=== PATIENT | female | born 1970 | race Caucasian/White ===

== ENCOUNTER 2021-01-08 09:41 | Day surgery (SDC) | payer OTHER ==
[~2021-01-08] VITALS: Ht 160 cm; Wt 68.0 kg
[~2021-01-08 09:41] MED LIST: NATAZIA PO; OMEPRAZOLE20 MG PO; PERCOCET 5/325M1 TAB PO
[2021-01-08] MEDS ORDERED: PERCOCET 5/325M1 TAB PO (13:29)
[2021-01-08 14:47] VITALS: BP 128/83
== END 2021-01-08 15:05 | disposition home or self-care (01) | DRG 419 ==
LOC: ORM 09:41
PROVIDERS: ATTEND Surgery
PROC: 0FT44ZZ Resection of Gallbladder, Percutaneous Endoscopic Approach (ICD-10-PCS; principal; 2021-01-08)
DX: K80.10 Calculus of gallbladder with chronic cholecystitis without obstruction (principal); K21.9 Gastro-esophageal reflux disease without esophagitis
CPT/HCPCS: J0131; J1610; J2710; Q9967

== ENCOUNTER 2021-07-28 20:24 | Emergency (ER) | payer OTHER ==
[~2021-07-28] VITALS: Ht 160 cm; Wt 68.1 kg
[2021-07-28 22:21] VITALS: BP 134/81
== END 2021-07-28 22:00 | disposition short-term general hospital (02) | DRG 159 ==
LOC: ED 20:24
DX: S01.551A Open bite of lip, initial encounter (principal); K21.9 Gastro-esophageal reflux disease without esophagitis; W54.0XXA Bitten by dog, initial encounter; Y92.007 Garden or yard of unspecified non-institutional (private) residence as the place of occurrence of the external cause

== ENCOUNTER 2022-08-27 00:36 | Emergency (ER) | payer OTHER ==
[~2022-08-27] VITALS: Ht 160 cm; Wt 65.0 kg
[2022-08-27 01:09] LABS: BASO% 0.1 % (0-3); EOS% 1.1 % (0-8); HEMATOCRIT 37.3 % (37.0-47.0); HEMOGLOBIN 12.4 g/dl (12.0-16.0); IMMATURE GRANULOCYTES 0.6 % (0.0-5.0); LYMPH% 48.9 % (15-41); MEAN CELL VOLUME 94.7 fL CALC (80.0-100.0); MEAN CORPUSCULAR HGB 31.5 pG CALC (26.0-32.0); MEAN CORPUSCULAR HGB CONC 33.2 g/dL CAL (32.0-36.0); MONO% 5.6 % (2-13); NEUT# 6.23 thou/uL (2.00-7.15); NEUT% 43.7 % (42-76); RED BLOOD COUNT 3.94 mill/uL (4.20-5.60); RED CELL DISTRI WIDTH 12.2 % (11.5-15.5)
[2022-08-27 01:22] LABS: ALBUMIN 4.5 g/dL (3.2-5.0); ALKALINE PHOSPHATASE 49 u/l (38-126); ANION GAP 21 (6-22 (CALC)); BILIRUBIN, TOTAL 0.8 mg/dL (0.02-1.3); BUN 10 mg/dL (7-17); BUN/CREATININE RATIO 15 (12-20 (CALC)); CARBON DIOXIDE 15 mmol/l (22-30); CHLORIDE 98 mmol/l (95-108); CREATININE 0.7 mg/dL (0.5-1.0); GFR FOR AFR.AMER. > 60 ML/MIN (>=60 (CALC)); GFR OTHER RACES > 60 ML/MIN (>=60 (CALC)); POTASSIUM 3.5 mmol/l (3.5-5.1); SGOT/AST 38 u/l (14-36); SODIUM 131 mmol/l (137-146); TOTAL PROTEIN 7.3 g/dL (6.3-8.2)
[2022-08-27 01:38] LABS: BETA-HCG, QUANT(RESULT NUMBER) <2 mIU/mL
[2022-08-27 03:15] LABS: URINE BILIRUBIN - DIPSTICK NEGATIVE (NEGATIVE); URINE BLOOD DIPSTICK TRACE-INTACT (NEGATIVE); URINE CLARITY CLEAR; URINE COLOR YELLOW; URINE GLUCOSE - DIPSTICK NEGATIVE (NEGATIVE); URINE KETONE NEGATIVE (NEGATIVE); URINE LEUK ESTERASE NEGATIVE (Negative); URINE NITRITE - DIPSTICK NEGATIVE (Negative); URINE PROTEIN - DIPSTICK NEGATIVE (NEG-TRACE); URINE SPECIFIC GRAVITY <=1.005; URINE UROBILINOGEN - DIPSTICK 0.2 E.U./dL (0.2)
[2022-08-27 07:39] VITALS: BP 132/82
[2022-08-27 10:02] VITALS: BP 133/85
[2022-08-27 10:04] VITALS: BP 116/68
[2022-08-27 12:01] VITALS: BP 142/79
[2022-08-27 14:21] VITALS: BP 142/79
== END 2022-08-27 14:22 | DRG 605 ==
LOC: ED 00:36
PROVIDERS: Family Medicine
PROC: 0HQCXZZ Repair Left Upper Arm Skin, External Approach (ICD-10-PCS; principal; 2022-08-27)
DX: S51.812A Laceration without foreign body of left forearm, initial encounter (principal); S41.112A Laceration without foreign body of left upper arm, initial encounter; S00.81XA Abrasion of other part of head, initial encounter; R53.1 Weakness; F10.129 Alcohol abuse with intoxication, unspecified; X83.8XXA Intentional self-harm by other specified means, initial encounter; Y90.8 Blood alcohol level of 240 mg/100 ml or more; Y92.009 Unspecified place in unspecified non-institutional (private) residence as the place of occurrence of the external cause; Z20.822 Contact with and (suspected) exposure to COVID-19
CPT/HCPCS: Q9967